=== PATIENT | male | born 1970 | race Caucasian/White ===

== ENCOUNTER 2021-02-23 07:18 | Day surgery (SDC) | payer OTHER ==
--- NOTE | 2021-02-22 11:54 | EKG ---
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
[2021-02-22 12:07] LABS: Absolute Lymphocytes (CBC) 1.6 K/uL (0.7-4.9); Basophils % 0.8 % (0-1.3); Hematocrit 43.9 % (39.6-49.0); Lymphocytes % 44.5 % (15.3-44.8); MPV 7.9 fL (7.6-11.3); RBC Red Blood Cell Count 5.02 M/uL (4.33-5.43)
[2021-02-22 12:16] LABS: Potassium 4.1 mmol/L (3.5-5.1)
--- NOTE | 2021-02-22 12:33 | RAD REPORT ---
EXAM DESCRIPTION: RAD - Chest Pa And Lat (2 Views) - 02/22/2021 12:01 pm CLINICAL HISTORY: PreOp Chest pain. COMPARISON: No comparisons FINDINGS: The lungs are clear. The heart is normal in size. No displaced fractures. IMPRESSION: No acute or concerning finding suspected.
[2021-02-22 13:20] LABS: Blood Morphology Comment NOT SEEN (NOT SEEN); Platelet Estimate ADEQ
[2021-02-23] MEDS: Ringers Lactate 1,000 ML IV ONE ×2 (07:45→08:31)
[2021-02-23] MEDS ORDERED: CEFAZOLIN/SWI 1gm 1 GM/10 ML SYR ONE (08:15)
[2021-02-23] MEDS ORDERED: MIDAZOLAM HCL 2 MG/2 ML INJ ONE (08:49)
[2021-02-23] MEDS ORDERED: propofoL 200 MG/20 ML VIAL IV ONE (08:49)
[2021-02-23] MEDS ORDERED: FENTANYL CITR 100 MCG/2 ML ONE (08:49)
[2021-02-23] MEDS ORDERED: LIDOCAINE 2% MPF 5 ML VIAL ONE (08:50)
[2021-02-23] MEDS ORDERED: ONDANSETRON 4 MG/2 ML VIAL ONE (08:50)
[2021-02-23] MEDS ORDERED: GLYCOPYRROLATE 0.2 MG/ML SYR ONE (09:05)
[2021-02-23] MEDS ORDERED: NEOSTIGMINE 1 MG/ML -5 ML ONE (09:15)
[2021-02-23] MEDS ORDERED: ROCURONIUM 50 MG/5 ML VIAL IV ONE (09:35)
[2021-02-23] MEDS ORDERED: dexAMETHasone 10 MG/ML VIAL ONE (09:54)
[2021-02-23] MEDS ORDERED: KETOROLAC 30 MG/ML INJ ONE (09:55)
[2021-02-23] MEDS ORDERED: HYDROMORPHONE HCL 1 MG/ML INJ ONE (10:24)
[2021-02-23 11:07] VITALS: BP 111/74; TEMP 97
[2021-02-23 11:09] VITALS: O2SAT 100
--- NOTE | 2021-02-23 12:57 | OP ---
Date of Procedure: 02/23/2021 Surgeon: Jeffrey Calle MD Cake Puncher: RODRI Baltazar. Preoperative Diagnosis: Right inguinal hernia. Postoperative Diagnosis: Right inguinal hernia. Procedure: Repair of right inguinal hernia. Estimated Blood Loss: Minimal. Specimen: Hernia sac and cord lipoma. Findings: As above. Anesthesia: General. Complications: None. Disposition: The patient tolerated the procedure in stable condition and taken to Recovery in good g eneral condition. Procedure In Detail: The patient was brought to the OR and placed in supine position. General anest hesia begun. The patient was prepped and draped in the usual sterile fashion. Marcaine 0.5% was inf iltrated locally. A 15-blade was used to make a 4 cm oblique incision between the pubic tubercle and the anterior iliac superior spine. Subcutaneous tissues divided. Wilbur fascia identified and divi ded. Aponeurosis identified and mobilized inferiorly to expose shelving edge, then opened through th e external ring. The ilioinguinal nerve identified and retracted out of the field of dissection. Cor d mobilized and skeletonized. Large cord lipoma and an indirect hernia sac identified. High ligatio n of both done with 2-0 chromic for the cord lipoma and a #1 Prolene for the large hernia sac with a suture ligature and free hand tie. Both structures excised and sent to pathology, and then a large M arlex mesh plug was placed in the internal ring, secured with VersaTack stapler. Onlay mesh placed o n the inguinal floor, secured medially to the pubic tubercle, inferiorly to the shelving edge, latera lly to each other, superiorly to the conjoined tendon and then cord structures and ilioinguinal nerve were placed back in anatomical location. The aponeurosis for closure. A 3-0 chromic use d to close the Wilbur fascia and aman were used to close the skin. Sterile dressings applied. Th e patient awakened and taken to Recovery in good general condition. Discharge Note: The patient will go to Day Surgery and home when stable. Disposition: Home. Condition: Stable. Discharge Instructions: Resume home medications and diet. Activity as tolerated. No heavy lifting. Remove outer dressing in 2 days. Shower. Keep wound clean and dry. Follow up in my office in a antonio bunn. Call for appointment. Tylenol No.3 one tablet p.o. q.4 p.r.n. pain. BOB/CARLOS Voice ID: [id number] Report ID: [id number]
== END 2021-02-23 11:00 | disposition home health service (06) ==
LOC: OR 07:18
PROVIDERS: ATTEND Surgery
PROC: 0YU50JZ Supplement Right Inguinal Region with Synthetic Substitute, Open Approach (ICD-10-PCS; principal; 2021-02-23 08:30)
DX: K40.90 Unilateral inguinal hernia, without obstruction or gangrene, not specified as recurrent (principal); Z20.822 Contact with and (suspected) exposure to COVID-19
CPT/HCPCS: 93005; 85025; 80048; 36415; 88302; 71046; 49505; U0003; J2704; J2250; J3010; J1100; J1170; J2710; J0690; J7120; J2405